=== PATIENT | male | born 1940 | race Caucasian/White ===

== ENCOUNTER 2020-04-23 07:21 | Day surgery (SDC) | payer MEDICARE, OTHER ==
[~2020-04-23 07:21] MED LIST: ASPIRIN EC81 MG PO; DILTIAZEM ER180 MG PO; HYDROCHLOROTHIA25 MG PO; LISINOPRIL20 MG PO; LOVASTATIN40 MG PO; MIRAPEX0.5 MG; PRILOSEC20 MG PO
[2020-04-23] MEDS ORDERED: NORVASC10 MG PO (07:48)
[2020-04-23] MEDS ORDERED: AVAPRO150 MG PO (07:48)
--- NOTE | 2020-04-23 09:50 | NUR ---
04/23/20 0950 Sindi Willett 0909- PT TO PACU IN SF POSITION. EYES OPEN. DENIES PAIN. BREATHING EASY AND UNLABORED. SPO2 >95% ON 3 L O2 VIA NC. REPORT RECEIVED FROM TAPE STRINGER. PT REPOSITIONED TO LL AND ENCOURAGED TO PASS GAS. 0915- PT CONTINUES TO SLEEP BREATHING EASILY WITH SP02 >95% ON 3 L O2 VIA NC. PASSING GAS PERIODICALLY. PT TALKING WITH MD ABOUT PROCEDURE. ASKING QUESTIONS APPROPRIATELY. 0922- PT REPOSITIONED TO BACK. HOB ELEVATED AND O2 TITRATED TO ROOM AIR. BREATHING EASY AND EVEN WITH SPO2 >95%. DENIES PAIN NAUSEA AND DIZZINES. 0930- PT AWAKE AND ALERT SIPPING WATER. ASKING QUESTIONS ABOUT PROCEDURE. VSS. ON ROOM AIR. 0938- PT AMBULATED TO SITTING AT EDGE OF BED. DENIES PAIN OR NAUSEA. BREATHING EASY AND UNLABORED. SPO2 >95%. 0945- PT REPORTS FEELING WELL AND READY TO GO HOME. DISCHARGE INSTRUCTIONS PROVIDED. PT GETTING DRESSED AT BEDSIDE. PACU DC CRITERION MET.
--- NOTE | 2020-04-24 13:17 | OR ---
[facility] [address] [place], [place] [address] Signed DATE OF OPERATION: 04/23/2020 SURGEON: Edith Moran MD PREOPERATIVE DIAGNOSIS: History of adenomatous polyp (tubular adenoma) 40 cm, 3 years ago. POSTOPERATIVE DIAGNOSES: 1. Sigmoid diverticulosis. 2. Polyps x2 (40 cm and 60 cm). PROCEDURE: Total colonoscopy to cecum with cold morcellation polypectomy x2. ANESTHESIA: Intravenous sedation, fentanyl 100 mcg, Versed 4 mg. INDICATION: This 79-year-old white man is a patient of Dr. Orville Castellanos, and underwent colonoscopy by me 3 years ago, at which time, he was found to have a tubular adenoma at 40 cm from the anal verge. He has been recommended for surveillance colonoscopy at this time. He is symptom free currently. The risks of bleeding, infection, and perforation related to colonoscopy was reviewed with him. He understands and wished to proceed. FINDINGS: The prep was quite good. Complete colonoscopy was undertaken to the cecum without question. Had numerous diverticula of the sigmoid and left colon. Two small polyps, likely adenomatous at 40 cm and 60 cm, both excised with cold morcellation technique. DESCRIPTION OF PROCEDURE: The patient was brought to the endoscopy suite and placed in lateral decubitus position. Full COVID-19 precautions were undertaken as his preop screening test still pending. He was given intravenous sedation to the point of slurred speech and nystagmus. Digital rectal examination was normal. The Olympus video colonoscope was passed in the rectum and manipulated throughout the colon, noting numerous diverticula of the sigmoid and left colon. The scope was ultimately passed to the cecum. The ileocecal valve and appendiceal orifice were normal. The scope was withdrawn from that point and examination throughout showed no sign of abnormality until approximately 60 cm from the anal verge, where a small probably adenomatous polyp was noted, this was excised with cold morcellation technique and passed for pathology. The scope was further withdrawn Electronically Signed By: EDITH MORAN MD 04/24/20 1317 PATIENT NAME: HUMBERTO SALINAS OPERATIVE REPORT DATE OF : 38 REPORT #: [id number] PHYSICIAN: EDITH MORAN MD PCP: ORVILLE CASTELLANOS MD REPORT IS CONFIDENTIAL AND NOT TO BE RELEASED WITHOUT AUTHORIZATION [facility] [address] [place] [id number] Signed and a small polyp was again seen at 40 cm, notably in the same region as prior polyp. This was excised with cold morcellation technique as well. Further withdrawal of scope showed no other abnormality. Retroflexed view showed a hypertrophied anal papillae, but no other abnormality. The scope was removed. The patient was taken to the recovery room in good condition. CONCLUSION DIAGNOSES: 1. Polyps x2. 2. Diverticulosis. PLAN: Recommend high-fiber diet. Recommend repeat colonoscopy in 3 years, sooner if clinically indicated. He will return to the ongoing care of Dr. Orville Castellanos, otherwise. MD JOSR Garcia/ASIA /[id number] cc: Orville Castellanos MD Copies: ORVILLE CASTELLANOS MD ~ Electronically Signed By: EDITH MORAN MD 04/24/20 1317 PATIENT NAME: HUMBERTO SALINAS OPERATIVE REPORT DATE OF : 38 REPORT #: [id number] PHYSICIAN: EDITH MORAN MD PCP: ORVILLE CASTELLANOS MD REPORT IS CONFIDENTIAL AND NOT TO BE RELEASED WITHOUT AUTHORIZATION
--- NOTE | 2020-04-24 15:23 | PATH ---
[facility] [address] [facility] [place] [address] Signed SPECIMEN(S): A CECAL POLYP AT 60 CM SPECIMEN(S): B CECAL POLYP AT 40 CM SPECIMEN SOURCE: A. CECAL POLYP AT 60 CM B. CECAL POLYP AT 40 CM CLINICAL HISTORY: Pre: Hx of colon adenoma. Post: Polyps, diverticulosis. MICROSCOPIC DESCRIPTION: Histologic sections of all submitted blocks are examined by light microscopy. These findings, together with the gross examination, support the pathologic diagnosis. FINAL PATHOLOGIC DIAGNOSIS: A. Colon, cecum, polyp at 60 cm, polypectomy: - Early tubular adenoma. - Negative for high-grade dysplasia or invasive carcinoma B. Colon, cecum, polyp at 40 cm, polypectomy: - Fragments of colonic mucosa with no histopathologic abnormality. - Negative for dysplasia or malignancy. NAL:cml:C2NR GROSS DESCRIPTION: Two specimens are received in two containers, labeled "DM." A. The specimen, labeled "DM, 1," and designated on the requisition "cecum polyp at 60 cm," is received in formalin and consists of one cain soft tissue fragment(s) that measure 0.4 cm in greatest dimension. The specimen is entirely submitted in cassette (A1). B. The specimen, labeled "DM, 2," and designated on the requisition "cecum polyp at 40 cm," is received in formalin and consists of two cain soft tissue fragment(s) that measure 0.3 cm in greatest dimension. The specimen is entirely submitted in cassette (B1). AT (under the direct supervision of a pathologist) The Gross Description was prepared using a voice recognition system. The report was reviewed for accuracy; however, sound-alike word errors, addition and/or deletions may occur. If there is any question about this report, please contact Client Services. PERFORMING LABORATORY: The technical component was performed by [facility], Raj Emanuel, PATIENT NAME: HUMBERTO SALINAS PATHOLOGY DATE OF : 38 REPORT #: [id number] PHYSICIAN: PRABHU KABA PCP: ORVILLE WILLS MD REPORT IS CONFIDENTIAL AND NOT TO BE RELEASED WITHOUT AUTHORIZATION [facility] [address] [place], [place] [address] [place] [address] (Registered Nurse First Assistant: Tameka Collado MD; CLIA# [id number]). Professional interpretation was performed by [facility], [address] [address] (CLIA# [id number]). Diagnostician: Samreen Fernández MD Pathologist Electronically Signed 04/24/2020 Copies: ~ PATIENT NAME: HUMBERTO SALINAS PATHOLOGY DATE OF : 38 REPORT #: [id number] PHYSICIAN: PRABHU KABA PCP: ORVILLE WILLS MD REPORT IS CONFIDENTIAL AND NOT TO BE RELEASED WITHOUT AUTHORIZATION
== END 2020-04-23 09:54 | disposition home or self-care (01) ==
LOC: OPS 07:21 → DS 07:21 → OPS 08:30
PROVIDERS: Surgery
PROC: 0DBH8ZZ Excision of Cecum, Via Natural or Artificial Opening Endoscopic (ICD-10-PCS; principal; 2020-04-23 08:30)
DX: Z12.11 Encounter for screening for malignant neoplasm of colon (principal); D12.0 Benign neoplasm of cecum; K57.30 Diverticulosis of large intestine without perforation or abscess without bleeding; I10 Essential (primary) hypertension; E78.5 Hyperlipidemia, unspecified; G47.30 Sleep apnea, unspecified; Z86.010 Personal history of colon polyps; Z79.899 Other long term (current) drug therapy
CPT/HCPCS: 99153; G0500; J2250; J3010; J7121

== ENCOUNTER 2023-06-01 07:25 | Day surgery (SDC) | payer MEDICARE, OTHER ==
[~2023-06-01] VITALS: Ht 170.2 cm; Wt 88.6 kg
[~2023-06-01 07:25] MED LIST changes: +AVAPRO150 MG PO; +LASIX20 MG PO; +NORVASC10 MG PO
[2023-06-01 07:46] VITALS: BP 165/58
--- NOTE | 2023-06-01 09:17 | NUR ---
06/01/23 0917 Eusebia Francisco 0907- PT ARRIVES TO PACU, LEFT LATERAL POSITION. LR INFUSING TO RW IV. PT ALERT BUT DROWSY. O2 AT 2L PER NC, ABD ROUND BUT SOFT, DENIES PAIN AND NAUSEA. ALL MONITORS IN PLACE. 0915- PT PLACED ON ROOM AIR AT THIS TIME, RESTING INTERMITTENTLY. WILL CONTINUE TO MONITOR.
[2023-06-01 09:51] VITALS: BP 128/59
--- NOTE | 2023-06-04 10:42 | OR ---
[facility] [address] [place], [place] [address] Signed DATE OF OPERATION: 06/01/2023 SURGEON: Edith Moran MD PREOPERATIVE DIAGNOSIS: History of adenomatous polyps, 2019. POSTOPERATIVE DIAGNOSES: 1. Diverticulosis. 2. Polyps x3 (sigmoid and splenic flexure). PROCEDURE: Total colonoscopy to cecum with cold morcellation polypectomy x3. ANESTHESIA: Intravenous sedation, fentanyl 100 mcg and Versed 5 mg. INDICATION: This 82-year-old white man is a patient of Dr. Orville Castellanos. [facility], at which time he was found to have 2 adenomas at 40 and 60 cm. He is currently symptom-free. He does have diverticulosis, which appears to be generally asymptomatic. He is admitted at this time to undergo surveillance colonoscopy based on his prior polyps. He understands the risk of bleeding, infection, and perforation related to colonoscopy and wished to proceed. FINDINGS: The prep was excellent. Complete colonoscopy was undertaken to the cecum. There were numerous diverticula in the sigmoid and left colon. There were 3 polyps, 2 in the splenic flexure and 1 in the sigmoid, all excised with cold morcellation technique. DESCRIPTION OF PROCEDURE: The patient was brought to the endoscopy suite and placed in lateral decubitus position, given intravenous sedation to the point of slurred speech and nystagmus. Digital rectal examination was normal. Olympus video colonoscope was passed in the rectum and manipulated throughout the colon noting numerous diverticula of the sigmoid and left colon. At the splenic flexure, there was a small adenomatous-appearing polyp that was excised with cold morcellation technique. The scope was ultimately advanced to the cecum. The ileocecal valve and appendiceal orifice were normal. Scope was withdrawn from that point and examination Electronically Signed By: EDITH MORAN MD 06/04/23 1042 PATIENT NAME: HUMBERTO SALINAS OPERATIVE REPORT DATE OF : 38 REPORT #: [id number] PHYSICIAN: EDITH MORAN MD PCP: ORVILLE CASTELLANOS MD REPORT IS CONFIDENTIAL AND NOT TO BE RELEASED WITHOUT AUTHORIZATION [facility] [address] [place], [place] [address] Signed showed no sign of abnormality until the left transverse colon and splenic flexure, another similar such polyp was noted and this was excised. Withdrawal of scope showed the other initial excision site to be only centimeters away +2 polyps at the splenic flexure. Further withdrawal showed another small polyp in the sigmoid, which was excised with cold morcellation technique. None of the polyps were malignant in appearance. Further withdrawal showed only diverticulosis of the rectosigmoid area. Retroflexed view of the rectum was normal. Scope was removed the patient was taken to the recovery room in good condition. CONCLUDING DIAGNOSIS: Polyps x3. PLAN: Repeat in 5 years if clinically appropriate. Addendum: The patient had concerns about skin excoriation in the right hemiscrotum and base of the penis. Examination showed no sign of specific abnormality, only mild inflammation. On the basis of these findings, we will prescribe Lotrisone ointment to be applied b.i.d. MD JOSR Garcia/ASIA /[id number] cc: Orville Castellanos MD Copies: ORVILLE CASTELLANOS MD ~ Electronically Signed By: EDITH MORAN MD 06/04/23 1042 PATIENT NAME: HUMBERTO SALINAS OPERATIVE REPORT DATE OF : 38 REPORT #: [id number] PHYSICIAN: EDITH MORAN MD PCP: ORVILLE CASTELLANOS MD REPORT IS CONFIDENTIAL AND NOT TO BE RELEASED WITHOUT AUTHORIZATION
--- NOTE | 2023-06-04 11:56 | PATH ---
[facility] [address] [facility] [place], [place] [address] Signed SPECIMEN(S): A SPLENIC FLEXURE POLYP SPECIMEN(S): B SPLENIC FLEXURE POLYP SPECIMEN(S): C SIGMOID POLYP SPECIMEN SOURCE: A. SPLENIC FLEXURE POLYP B. SPLENIC FLEXURE POLYP C. SIGMOID POLYP CLINICAL HISTORY: Colonoscopy, diverticulosis, history of polyps. FINAL PATHOLOGIC DIAGNOSIS: A. Splenic flexure polyp: - Tubular adenoma (two fragments). B. Splenic flexure polyp: - Hyperplastic polyp (one fragment). C. Sigmoid polyp: - Hyperplastic polyp (one fragment). JVR:[facility] MICROSCOPIC EXAMINATION: Histologic sections of all submitted blocks are examined by light microscopy. These findings, together with the gross examination, support the pathologic diagnosis. GROSS DESCRIPTION: A. The specimen, labeled and designated "Meengs, splenic flexure polyp," is received in formalin and consists of three cain soft tissue fragments, ranging from 0.2 cm. Entirely submitted in (A1). B. The specimen, labeled and designated "Meengs, splenic flexure polyp," is received in formalin and consists of three cain soft tissue fragments, ranging from 0.1-0.2 cm. Entirely submitted in (B1). C. The specimen, labeled and designated "Meengs, sigmoid colon polyp," is received in formalin and consists of one cain soft tissue fragment, 0.2 cm. Entirely submitted in (C1). JS (under the direct supervision of a pathologist) The Gross Description was prepared using a voice recognition system. The report was reviewed for accuracy; however, sound-alike word errors, addition and/or deletions may occur. If there is any question about this report, please contact Client Services. PATIENT NAME: HUMBERTO SALINAS PATHOLOGY DATE OF : 38 REPORT #: [id number] PHYSICIAN: PRABHU PATHOLOGY PCP: ORVILLE WILLS MD REPORT IS CONFIDENTIAL AND NOT TO BE RELEASED WITHOUT AUTHORIZATION [facility] [address] [place], [place] [address] Signed PERFORMING LABORATORY: Technical component was performed by [facility], [address] [place] [address] (CLIA# [id number]). Professional interpretation was performed by [facility], [address] [place] [id number] (CLIA#: [id number]). Diagnostician: Austin Olivares MD Pathologist Electronically Signed 06/04/2023 Copies: ~ PATIENT NAME: HUMBERTO SALINAS PATHOLOGY DATE OF : 38 REPORT #: [id number] PHYSICIAN: PRABHU KABA PCP: ORVILLE WILLS MD REPORT IS CONFIDENTIAL AND NOT TO BE RELEASED WITHOUT AUTHORIZATION
== END 2023-06-01 10:00 | disposition home or self-care (01) ==
LOC: OPS 07:25 → DS 07:25 → OPS 08:30 → DS 08:30 → OPS 10:00
PROVIDERS: ATTEND Surgery
PROC: 0DBL8ZZ Excision of Transverse Colon, Via Natural or Artificial Opening Endoscopic (ICD-10-PCS; 2023-06-01)
PROC: 0DBN8ZZ Excision of Sigmoid Colon, Via Natural or Artificial Opening Endoscopic (ICD-10-PCS; principal; 2023-06-01 08:30)
DX: Z12.11 Encounter for screening for malignant neoplasm of colon (principal); D12.3 Benign neoplasm of transverse colon; K57.30 Diverticulosis of large intestine without perforation or abscess without bleeding; I10 Essential (primary) hypertension; G47.30 Sleep apnea, unspecified
CPT/HCPCS: 88305; 99153; G0500; J2250; J3010; J7121

== ENCOUNTER 2025-09-09 16:32 | Emergency (ER) | payer MEDICARE, OTHER ==
[~2025-09-09] VITALS: Ht 170.2 cm; Wt 84.6 kg
[2025-09-09 18:54] LABS: BASOPHILS 0.6 % (0.2-1.2); EOSINOPHILS 0.2 % (0.8-7.0); LYMPHOCYTES 12.7 % (21.8-53.1); MCH 32.5 PG (25.7-32.2); MCHC 35.3 g/dL (32.3-36.5); MCV 92.2 fL (79.0-92.2); MONOCYTES 11.1 % (5.3-12.2); NEUTROPHILS 74.8 % (34.0-67.9); RBC 4.12 M/uL (4.63-6.08)
[2025-09-09 19:01] LABS: BLOOD/HGB, URINE NEGATIVE (Negative); KETONE, URINE NEGATIVE (Negative); LEUK ESTERASE, URINE NEGATIVE (negative); NITRITE, URINE NEGATIVE (negative)
[2025-09-09 19:04] LABS: BACTERIA, URINE NONE SEEN /hpf (negative); CASTS, URINE NONE SEEN \\lpf; CRYSTALS, URINE NONE SEEN (0-1+); EPITHELIAL CELLS, URINE SQUAMOUS 1+ /lpf (0-1+); REFLEX CULTURE, URINE No (No)
[2025-09-09 19:06] LABS: ALT (SGPT) 30.0 U/L (14-59); AST (SGOT) 22.0 U/L (15-37); GLOMERULAR FILTRATION RATE,EST 85.0 mL/min (>60); PROTEIN, TOTAL 6.8 g/dL (6.4-8.2); UREA NITROGEN 12.0 mg/dL (7-18)
[2025-09-09] MEDS ORDERED: ENALAPRILAT DIHYDRATE 1.25 MG/ML VIAL IV ONE (19:45)
[2025-09-09] MEDS ORDERED: FUROSEMIDE40 MG PO (21:42)
[2025-09-09] MEDS ORDERED: CALCIUM CARBONATE 500 MG CHEW PO ONE (21:45)
[2025-09-09 22:05] VITALS: BP 153/64
--- NOTE | 2025-09-09 22:18 | EKG ---
[facility] [address] [facility] [place] [address] Signed Normal sinus rhythm Normal ECG No previous ECGs available Confirmed by Nahid Bolanos MD () on 09/09/2025 10:17:48 PM Electronically Signed By: NAHID BOLANOS MD 09/09/25 2218 PATIENT NAME: HUMBERTO SALINAS Electrocardiogram DATE OF : 38 PHYSICIAN: NAHID BOLANOS MD REPORT #: [id number] REPORT IS CONFIDENTIAL AND NOT TO BE RELEASED WITHOUT AUTHORIZATION
== END 2025-09-09 22:10 | disposition home or self-care (01) ==
LOC: ED 16:32
PROVIDERS: Emergency Medicine
DX: I10 Essential (primary) hypertension (principal); E87.1 Hypo-osmolality and hyponatremia; M19.90 Unspecified osteoarthritis, unspecified site; Z88.1 Allergy status to other antibiotic agents; Z88.8 Allergy status to other drugs, medicaments and biological substances; Z79.82 Long term (current) use of aspirin
CPT/HCPCS: 36415; 70450; 80053; 81001; 83735; 85025; 93005; 93010; 96374; 96375; 99284-25; J0360; J7131